=== PATIENT | female | born 1955 | race Caucasian/White ===

== ENCOUNTER 2023-07-06 14:29 | Emergency (ER) | payer MEDICARE, SELFPAY ==
--- NOTE | 2023-07-06 14:43 | ED.EAR ---
HPI - Ear Problem General Chief complaint: Ear Stated complaint: right ear pain/full, vertigo Time Seen by Provider: 07/06/23 14:57 Source: patient and RN notes reviewed Mode of arrival: ambulatory Limitations: no limitations History of Present Illness HPI Narrative: 67-year-old female presents with concern for right ear fullness, discomfort. Reports that is aggravating her vertigo. She reports history of vertigo, she took meclizine this morning which has helped to use her vertigo but she continues have a sensation of fullness. She reports she normally does not have hearing in that ear. She reports history of problems with that ear. She denies drainage. MD Complaint: ear pain Related Data Home Medications Medication Instructions Recorded Confirmed citalopram 20 mg tablet mg 07/06/23 estradiol 0.01% (0.1 mg/gram) vaginal 07/06/23 vaginal cream famotidine 40 mg tablet mg 07/06/23 fluticasone furoate 200 inhalation 07/06/23 mcg-vilanterol 25 mcg/dose inhalation powder (Breo Ellipta) metoprolol succinate 25 mg mg PO 07/06/23 tablet,extended release 24 hr nitroglycerin 0.4 mg sublingual mg 07/06/23 tablet potassium chloride 10 mEq meq PO 07/06/23 tablet,extended release rosuvastatin 10 mg tablet mg 07/06/23 valsartan 80 tablet 07/06/23 mg-hydrochlorothiazide 12.5 mg tablet Allergies Allergy/AdvReac Type Severity Reaction Status Date / Time Sulfa (Sulfonamide Allergy Hives Verified 07/06/23 14:56 Antibiotics) codeine AdvReac Anxiety Verified 07/06/23 14:56 Review of Systems Review of Systems: CONSTITUTIONAL: Denies malaise, chills, sweats, or fever. EYES: Denies visual changes, redness, or discharge. ENT: Denies rhinorrhea, congestion, sinus pain, and sore throat. Reports right ear fullness CARDIOVASCULAR: Denies chest pain, palpitations, or edema. RESPIRATORY: Denies cough. Denies dyspnea. GASTROINTESTINAL: Denies abdominal pain, nausea, vomiting, diarrhea SKIN: Denies rash or itching. MUSCULOSKELETAL: Denies myalgia. NEUROLOGIC: Denies headache. Reports vertigo All systems reviewed & are unremarkable except as noted in HPI and below PMFSH Comments At time of signature, agree with nursing past medical, surgical, social and family history. There is no relevant family history pertinent to the presenting complaint Exam Narrative: GENERAL: Well-appearing, well-nourished, and in no acute distress. HEAD: Normocephalic EYES: PERRLA, conjunctivae clear ENT: Nares clear. Mucous membranes moist. TM pearly eaton with sharp light reflex bilaterally; no tragal tenderness. NECK: Supple. No lymphadenopathy CHEST: Clear to auscultation, breath sounds equal. No wheezing, rhonchi, rales, or stridor. No respiratory distress, speaks in full sentences. HEART: Regular rate and rhythm. No murmur heard. SKIN: Warm, dry, no rash. NEURO: Alert and oriented x3. No focal deficits. PSYCH: Normal mood and affect Course Course Emergency Course: Patient is aware of diagnosis, understands and agrees to treatment plan. Anticipatory guidance given. Patient agrees to follow-up as directed and is aware of reasons to seek care at the emergency department. Portions of this record may have been created with voice recognition software Level of Care: Express Care Visit Vital Signs Vital signs: Reviewed. Medical Decision Making MDM Narrative Medical decision making narrative: Differential diagnosis considered: Walsh virus, strep pharyngitis, allergic rhinitis, upper respiratory tract infection, sinusitis, rhinosinusitis, nasopharyngitis. viral pharyngitis, otitis media, otitis externa, otitis effusion, cerumen impaction, foreign body. Exam findings show no acute concerns or changes; patient is non-toxic appearing and is in no distress. Patient is appropriate for outpatient treatment and follow-up. Critical Care Time Critical Care Time Critical Care Time: No Discharge Plan Discharge C
[2023-07-06 14:44] VITALS: BP 154/85; PULSE 80; RESP 16; TEMP 36.6; O2SAT 100
== END 2023-07-06 15:11 | disposition home or self-care (01) ==
PROVIDERS: Emergency Provider Nurse Practitioner; PCP Internal Medicine Endocrinology, Diabetes & Metabolism
DX: H93.8X1 Other specified disorders of right ear (principal); R42 Dizziness and giddiness; E78.00 Pure hypercholesterolemia, unspecified; I10 Essential (primary) hypertension; J45.909 Unspecified asthma, uncomplicated; K21.9 Gastro-esophageal reflux disease without esophagitis; Z95.5 Presence of coronary angioplasty implant and graft
CPT/HCPCS: 99213; G0463

== ENCOUNTER 2024-12-03 12:45 | Outpatient (CLI) | payer MEDICARE, SELFPAY ==
--- OUTSIDE RECORDS SUMMARY | 2024-12-03 12:51 | XMS_ITS | Clinical Summary ---
Author Organization [email or web address] Address [address] [place] [address] Care Team Providers Care Oracle Engineer Name Role Phone Eladio Jeffries MD Primary Care Provider + Source Comments [email or web address],non-owned Affiliates and Associated Physician Practices is amultiple site organization consisting of ambulatory clinics and hospital sitesin [place], [place], [place] and [place]. This disclosure is being madepursuant to the Care Everywhere program and may not contain all information available regarding this patient. Last updated 18.[email or web address] Allergies Active Allergy Reactions Criticality Noted Date Comments Codeine Palpitations High 02/12/2017 Hydrocodone-Acetaminophen Palpitations Low 06/18/19 18 Sulfa Drugs Urticaria Medium 02/12/2017 Medications * Be aware that medications may not be up to date on this document. Alwaysverify current medications with the patient. famotidine (PEPCID) 40 MG tablet Take 1 (one) tablet by mouth once daily 3 7 Active citalopram (CELEXA) 20 MG tablet Take 0.5 (one-half) tablet by mouth once daily 1 7 Active esomeprazole (NEXIUM OTC) 20 MG capsule Take 1 (one) capsule by mouth daily before breakfast Active nitroGLYCERIN (NITROSTAT) 0.4 MG tablet Dissolve 1 (one) tablet under the tongue as needed 1 Active metoprolol succinate XL 24hr (TOPROL XL) 25 MG tablet Take 1 (one) tablet by mouth at bedtime 1 Active aspirin buffered (BUFFERIN LOW DOSE) 81 MG tablet Active potassium chloride ER (KLOR-CON) 10 MEQ tablet 2 (two) tablets once daily 1 Active valsartan-hydro CHLOROthiazide (DIOVAN HCT) 80-12.5 MG tablet Take 1 (one) tablet by mouth once daily 1 Active rosuvastatin (CRESTOR) 5 MG tablet Take 1 (one) tablet by mouth once daily 0 Active estradiol (Estrace) 0.1 MG/GM vaginal cream Apply a small amount around the vaginal opening nightly 42.5 g 1 3 Active Fluticasone Furoate-Vilante rol (BREO ELLIPTA IN) Breo Ellipta Activ e Active Problems Problem Noted Date Diagnosed Date Personal history of colonic polyps 10/21/2023 Overview (02/19/2024): IMO Replacement Utility 02/19/2024 Family history of colon cancer 11/13/2020 Sensorineural hearing loss ( SNHL) of right ear with unrestricted hearing of left ear 07/18/2020 Meniere disease Hearing loss GERD (gastroesophageal reflux disease) Hypertension Depression Elevated cholesterol Asthma Immunizations Immunization Administration Dates Next Due INFLUENZA VACCINE, TRIV. (AF LURIA, FLUZONE TRIVALENT; 6MO+) (IIV3) 03/13/2014,02/05/2013 Covid Profista primary monoval ent 12+ yr 0.3mL Purple cap 07/13/2020,06/20/2020 INFLUENZA VACCINE 03/18/2019, 7,03/22/2016,2014 INFLUENZA VACCINE, HIGH-DOSE , QUADR. (FLUZONE HIGH-DOSE QUADRIVALENT; 65Y+), 0.7 ML (HD-IIV4) 02/08/2021,02/03/2020 INFLUENZA VACCINE, QUADR. (F LUZONE; FLULAVAL; FLUARIX; AFLURIA QUADRIVALENT; 6MO+), 0.5 ML (IIV4) 02/23/2018 PNEUMOCOCCAL PPSV23 06/20/2019 Pneumococcal Pcv13 Conj 02/21/2015 Family History Medical History Relation Name Comments Cancer - Colon Father COPD - Chronic Obstructive Pulmonary Disease Mother Cancer - Colon Mother Cancer - Breast Sister Relation Name Status Comments Father Mother Sister Social History Tobacco Use Types Packs/Day Years Used Date Smoking Tobacco: Never Smokeless Tobacco: Never Tobacco Cessation:Counseling Given: Not Answered Alcohol Use Standard Drinks/Week Comments Yes 0 (1 standard drink = 0.6 oz pur e alcohol) rarely Comments No Sex and Gender Information Value Date Recorded Sex Assigned at Female 03/18/2021 10:49 AM CDT Legal Sex Female 6:15 PM CDT Gender Identity Female 03/18/2021 10:49 AM CDT Sexual Orientation Straight 03/18/2021 10 :49 AM CDT Last Filed Vital Signs Vital Sign Reading Time Taken Comments Blood Pressure 128/85 10/21/2023 12:20 PM CDT Pulse 70 10/21/2023 12:20 PM CDT Temperature 36.6 C (97.8 F) 11/28/2022 10:36 AM CDT Respiratory Rate 15 11/28/2022 11:00 AM CDT Oxygen Saturation 98% 10/21/2023 12:20 PM CDT Inhaled Oxygen Concentration - - Weight 81.6 kg (180 lb) 10/21/2023 12:20 PM CDT Height 160 cm (5' 3) 10/21/2023 12:20 PM CDT Body Mass Index 31.89 10/21/2023 12:20 PM CDT Plan of Treatment Health Maintenance Due Date Last Done Comments COLOGUARD (AGES 45-75) - COLON CA SCREENING 1955 CT COLONOGRAPHY - COLON CA SCREENING 1955 FIT - COLON CA SCREENING 1955 FLEX SIG - COLON CA SCREENING 1955 HEPATITIS C SCREENING 10/18/1971 DTAP/TDAP/TD VACCINES (1 - Tdap) 1972 ZOSTER VACCINE (1 of 2) 10/23/2003 Respiratory Syncytial Virus (RSV) Vaccine Pt: or over 60 yrs (1 - Risk 60-74 years 1-dose series) 2013 COVID-19 VACCINE (3 - season) 2024 07/13/2020, 06/20/2020 DEPRESSION SCREENING 05/20/2024 MEDICARE AWV CALENDAR YEAR 2024 MAMMOGRAM 10/03/2024 10/03/2022, 08/18, 08/10/2020, Additional history exists INFLUENZA VACCINE (#1) 2025 3, 02/08/2021, 02/03/2020, Additional history exists SCREENING FOR DIABETES 07/29/2026 4, 11/22/2022, 07/26/2022, Additional history exists COLON MONITORING 11/28/2032 11/28/2022, 04/2023, 12/28/2020, Additional history exists COLONOSCOPY - COLON CA SCREENING 11/28/2032 11/28/2022, 11/28/2022, 12/28/2020, Additional history exists Colorectal Cancer Screening 11/28/2032 PNEUMOCOCCAL VACCINE 50+ Completed 06/20/2019, 09/2014 BONE DENSITY TESTING Completed 03/15/2021, 03/15/20 21 HEPATITIS B VACCINE Aged Out No longe r eligible based on patient's age to complete this topic HIB VACCINE Aged Out No longer eligi ble based on patient's age to complete this topic HPV VACCINE Aged Out No longer eligi ble based on patient's age to complete this topic MENINGOCOCCAL (Group B) VACCINE SHARED DECISION-MAKING Aged Out No longer eligible based on patient's age to complete this topic MENINGOCOCCAL GROUPS A/C/Y/W VACCINE Aged Out No longer eligible based on patient's age to complete this topic Goals Goal Patient Goal Type Associated Problems Recent Progress Patient-Stated? Author Medication Management General On track( 024 12:25 PM CDT) No Magaly Fuentes, RN Note: Expected end date: ongoing Interventions: Take all medications as prescribed Let your doctor know right away about any changes in your medications Make sure to request a refill of your medication at least one week prior to your last dose Procedures Procedure Name Priority Date/Time Associated Diagnosis Comments ENDOSCOPY, COLON, SCREENING Routine 11/28/2022 8:18 AM CDT COMPREHENSIVE METABOLIC PANEL 11/22/2022 1:43 PM CDT MAMMOGRAM 10/03/2022 DEXA BONE DENSITY 2 SITES 03/15/2021 from Last 3 Months or Most Recently Relevant to Health Maintenance Results * ENDOSCOPY, COLON, SCREENING (11/28/2022 8:18 AM CDT) Report Endoscopy POC Endoscopy Department Report _ Patient Name: Lexi Chicas Procedure Date: 11/28/2022 8:18 AM Date of : 1955 Classification: Outpatient Gender: Female Ethnicity: Not or Race: White _ Providers: Deep Wagner MD, Mik Devine (Fellow), Rafael Palma (Fellow) Referring MD: Eladio Jeffries MD (PCP), Lulu IversonSouth [facility] HospitalMD Ha (Referring MD), Linda Lopes (Referring MD) Procedure: Colonoscopy Indications: High risk colon cancer surveillance: Personal history of colonic polyps, Family history of colon cancer in multiple first-degree relatives Medications: Monitored Anesthesia Care Description of Procedure: Pre-Anesthesia Assessment: - Prior to the procedure, a History and Physical was performed, and patient medications and allergies were reviewed. The patient's tolerance of previous anesthesia was also reviewed. The risks and benefits of the procedure and the sedation options and risks were discussed with the patient. All questions were answered, and informed consent was obtained. Prior Anticoagulants: The patient has taken no anticoagulant or antiplatelet agents. ASA Grade Assessment: II - A patient with mild systemic disease. After reviewing the risks and benefits, the patient was deemed in satisfactory condition to undergo the procedure. After I obtained informed consent, the scope was passed under direct vision. Throughout the procedure, the patient's blood pressure, pulse, and oxygen saturations were monitored continuously. The Colonoscope was introduced through the anus and advanced to the cecum, identified by appendiceal orifice and ileocecal valve. The colonoscopy was performed without difficulty. The patient tolerated the procedure well. The quality of the bowel preparation was good. The ileocecal valve, appendiceal orifice, and rectum were photographed. Findings: Skin tags were found on perianal exam. A 4 mm polyp was found in the transverse colon. The polyp was sessile. The polyp was removed with a cold snare. Resection and retrieval were complete. Multiple medium-mouthed diverticula were found in the sigmoid colon. Internal hemorrhoids were found during retroflexion. Estimated Blood Loss: Estimated blood loss was minimal. Complications: No immediate complications. Impression: - Perianal skin tags found on perianal exam. - One 4 mm polyp in the transverse colon, removed with a cold snare. Resected and retrieved. - Diverticulosis in the sigmoid colon. - Internal hemorrhoids. Recommendation: - Patient has a contact number available for emergencies. The signs and symptoms of potential delayed complications were discussed with the patient. Return to normal activities tomorrow. Written discharge instructions were provided to the patient. - Resume previous diet. - Continue present medications. - Await pathology results. - Repeat colonoscopy in 5 years for surveillance, pending pathology results. - Return to primary care physician as previously scheduled. Attending Participation: I was present and participated during the entire procedure, including non-george portions. Procedure Code(s): --- Professional --- 96220, Colonoscopy, flexible; with removal of tumor(s), polyp(s), or other lesion(s) by snare technique Diagnosis Code(s): --- Professional --- Z86.010, Personal history of colonic polyps D12.3, Benign neoplasm of transverse colon (hepatic flexure or splenic flexure) K64.8, Other hemorrhoids K64.4, Residual hemorrhoidal skin tags Z80.0, Family history of malignant neoplasm of digestive organs K57.30, Diverticulosis of large intestine without perforation or abscess without bleeding CPT copyright 2021 [employer]. All rights reserved. The codes documented in this report are preliminary and upon financial administration officer review may be revised to meet current compliance requirements. _ Deep Wagner MD 11/28/2022 10:51:32 AM Note Initiated On: 11/28/2022 8:18 AM Number of Addenda: [address] [address] [facility] 11/28/2022 8:18 AM CDT us Deep Wagner MD GI PROCEDURE ORDERABLES Edite d Result - Final [facility] * (ABNORMAL) COMPREHENSIVE METABOLIC PANEL (11/22/2022 1:43 PM CDT) Glucose 93 65 - 99 mg/dL [facility] Comment: Fasting reference interval BUN 15 7 - 25 mg/dL [facility] Creatinine 1.29(H) 0.50 - 1.05 mg/dL [facility] eGFR by Cystatin C 45(L) > OR = 60 mL/min/1.7 3m2 [facility] Comment: The eGFR is based on the CKD-EPI 2020 equation. To calculate the new eGFR from a previous Creatinine or Cystatin C result, go to https://www.kidney.org/professionals/ kdoqi/gfr%5Fcalculator BUN/Creatinine Ratio 12 6 - 22 (calc) [facility] Sodium 139 135 - 146 mmol/L [facility] Potassium 4.1 3.5 - 5.3 mmol/L [facility] Chloride 103 98 - 110 mmol/L [facility] CO2 26 20 - 32 mmol/L [facility] Calcium 9.4 8.6 - 10.4 mg/dL [facility] Protein Total 6.8 6.1 - 8.1 g/dL [facility] Albumin 4.4 3.6 - 5.1 g/dL [facility] Globulin Total 2.4 1.9 - 3.7 g/dL (calc) [facility] Albumin/Globulin Ratio 1.8 1.0 - 2.5 (calc) [facility] Bilirubin Total 0.9 0.2 - 1.2 mg/dL [facility] Alkaline Phosphatase 80 37 - 153 U/L [facility] AST 22 10 - 35 U/L [facility] ALT 14 6 - 29 U/L [facility] Comment: Test Performed at: [facility] [id number] [place] [id number] ARACELI BOWERS MD 11/22/2022 1:43 PM CDT 11/22/2022 1:46 PM CDT us Ander Marinelli MD LAB - CHEMISTRY ORDERABLES Final Result [facility] [id number] [place] [address] * MAMMOGRAM (10/03/2022) Anatomical Region Laterality Modality Other 10/03/2022 Narrative 10/03/2022 Ordered by an unspecified provider. us Scanned Document SCANNING ONLY Final Result * DEXA BONE DENSITY 2 SITES (03/15/2021) Anatomical Region Laterality Modality Other 03/15/2021 Narrative 03/15/2021 Ordered by an unspecified provider. us Scanned Document DEXA ORDERABLES Final Result from Last 3 Months or Most Recently Relevant to Health Maintenance Insurance [employer] MEDICARE ADV Care Teams Oracle Engineer Relationship Specialty Start Date End Date Eladio Jeffries MD [id number] [address] PCP - General Internal Medicine 11/02/17
--- OUTSIDE RECORDS SUMMARY | 2024-12-03 12:51 | XMS_ITS | Clinical Summary ---
Author Organization [facility] Address [address] [place] [address] Phone Care Team Providers Care Exploration Engineer Name Role Phone Eladio Jeffries MD Primary Care Provider [phone] Allergies Active Allergy Reactions Criticality Noted Date Comments Codeine Palpitations High 02/12/2017 Sulfa (Sulfonamide Antibiotics) Hives,Anaphylaxis High 10/17/2012 Medications aspirin (RADHA) 81 mg Oral Tab Take by mouth. Active potassium chloride (KLOR-CON) 20 mEq Extended Release tablet Take 2 Tablets by mouth daily. 9 Active metoprolol succinate (TOPROL XL) 25 mg Extended Release 24 hour tablet Take 25 mg by mouth daily. 1 Active diazePAM (VALIUM) 2 mg tablet Take 2 mg by mouth Continuous as needed. 1 Active esomeprazole (NexIUM) 20 mg Capsule, Delayed Release(E.C.) Take 20 mg by mouth daily. Active nitroglycerin (NITROSTAT) 0.4 mg Tablet, Sublingual PLACE 1 TABLET BY MOUTH UNDER THE TONGUE EVERY 5 MINUTES NEEDED FOR CHEST PAIN DIRECTED 1 Active famotidine (PEPCID) 40 mg tablet TAKE 2 TABLETS BY MOUTH EVERY NIGHT AT BEDTIME 0 Active citalopram (CeleXA) 20 mg tablet Take 1 Tablet by mouth daily. 1 Active valsartan-hydro CHLOROthiazide (DIOVAN HCT) 80-12.5 mg tablet Take 1 Tablet by mouth daily. Active ondansetron (ZOFRAN ODT) 8 mg Tablet, Rapid Dissolve Take 8 mg by mouth. 3 Active fluticasone propionate (FLONASE) 50 mcg/spray [place], Suspension nasal inhaler Administer 2 Sprays in each nostril daily. 2 Active estradioL (ESTRACE) 0.01% (0.1 mg/g) vaginal cream APPLY A SMALL AMOUNT AROUND THE VAGINAL OPENING NIGHTLY 3 Active predniSONE 10 mg Tablets, Dose Pack 4 po qd x 3 days, then 3 po qd x 3 days, then 2 po qd x 3 days, then 1 po qd x 3 days. 30 Tablet 4 Active amLODIPine (NORVASC) 2.5 mg tablet Take 2.5 mg by mouth daily. 4 02/18/20 25 Active fenofibrate (LOFIBRA) 54 mg Take 54 mg by mouth daily. 4 02/18/20 25 Active inhalational spacing device SpacerIndicatio ns:ILD (interstitial lung disease) (CMS/HCC) Use with HFA inhalers 1 Each 4 Active albuterol sulfate HFA 90 mcg/actuation aerosol inhalerIndicati ons:ILD (interstitial lung disease) (CMS/HCC) Take 2 Puffs by inhalation every 6 hours as needed for Shortness of Breath. 8.5 Gram 11 4 Active fluticasone furoate-vilante roL (BREO ELLIPTA) 200-25 mcg/dose Disk with Device Take 1 Puff by inhalation daily. RINSE MOUTH AFTER USING 1 Each 8 5 Active methylPREDNISol one (MEDROL DOSPACK) 4 mg Tablets, Dose Pack Follow package instructions 21 Tablet 5 Active benzonatate (TESSALON) 200 mg capsule Take 1 Capsule (200 mg) by mouth 3 times daily. 90 Capsule 1 5 Active azelastine (ASTELIN) 137 mcg/actuation nasal spray Administer 2 Sprays in each nostril 2 times daily. 30 mL 11 5 Active fluticasone furoate-vilante roL (BREO ELLIPTA) 200-25 mcg/dose Disk with DeviceIndicatio ns:Cough, unspecified type Take 1 Puff by inhalation daily. 1 Each 11 5 Active methylPREDNISol one (MEDROL DOSPACK) 4 mg Tablets, Dose PackIndications :Cough, unspecified type Use per box instructions 21 Tablet 5 Active benzonatate (TESSALON) 200 mg capsule Take 1 Capsule (200 mg) by mouth 3 times daily. 90 Capsule 1 5 Active Active Problems Patient Care Coordination No te Formatting of this note migh t be different from the original. Primary Care: Eladio Jeffries MD Referring Provider: [place] [address] [place] [address] Other: Problem Noted Date Diagnosed Date Lump or mass in breast 10/16/2012 HTN (hypertension) Arthritis Encounters Date Type Department Care Team Description 12/01/2024 External Device Data [facility] ABSTRACTION Provider, Abstract 11/03/2024 External Device Data [facility] ABSTRACTION Provider, Abstract 11/02/2024 2:30 PM CDT Office Visit [facility] Pulmonology [address] [place] [address] Marco Lawson MD ILD (interstitial lung disease) ([facility]) (Primary Dx); Mild persistent asthma without complication; Gastroesophageal reflux disease, unspecified whether esophagitis present 11/02/2024 Telephone [facility] [address] [place] [address] Marco Lawson MD Needs Orders Written; Wants Appointment 10/30/2024 9:20 AM CDT - 10/30/2024 11:59 PM CDT Hospital Encounter [facility] Pulmonary Function [facility] [place] [facility] [address] [place] [address] A [address] [place] [address] Marco Lawson MD Discharge Disposition: Home or Self Care 10/28/2024 9:10 AM CDT - 10/28/2024 11:59 PM CDT Hospital Encounter [facility] CT Scan [address] [facility] [address] [place] [address] Marco Lawson MD Discharge Disposition: Home or Self Care 10/13/2024 External Device Data [facility] ABSTRACTION Provider, Abstract 10/08/2024 External Device Data [facility] ABSTRACTION Provider, Abstract 10/07/2024 External Device Data [facility] ABSTRACTION Provider, Abstract 10/06/2024 External Device Data [facility] ABSTRACTION Provider, Abstract 09/08/2024 1:00 PM CDT Office Visit [facility] Pulmonology [address] [place] [address] Marco Lawson MD Cough, unspecified type (Primary Dx); ILD (interstitial lung disease) ([facility]); Gastroesophageal reflux disease, unspecified whether esophagitis present 09/07/2024 Telephone [facility] [address], [place] [id number] Marco Lawson MD Cough from Last 3 Months Family History Medical History Relation Name Comments Cancer Father Heart Disease Mother Breast Cancer Sister Relation Name Status Comments Father Mother Sister Social History Tobacco Use Types Packs/Day Years Used Date Smoking Tobacco: Never Smokeless Tobacco: Never Tobacco Cessation:Counseling Given: Not Answered Alcohol Use Standard Drinks/Week Comments Yes 0 (1 standard drink = 0.6 oz pur e alcohol) rare Comments No Sex and Gender Information Value Date Recorded Sex Assigned at Not on file Legal Sex Female 5:05 AM QUITLINE COUNSELOR Gender Identity Not on file Sexual Orientation Not on file Occupation Industry Job Start Date Job End Date Not on file Not on file Not on file Not on file Last Filed Vital Signs Vital Sign Reading Time Taken Comments Blood Pressure 108/68 11/02/2024 2:30 PM CDT Pulse 75 11/02/2024 2:30 PM CDT Temperature - - Respiratory Rate - - Oxygen Saturation 98% 11/02/2024 2:30 PM CDT Inhaled Oxygen Concentration - - Weight 80.7 kg (178 lb) 11/02/2024 2:30 PM CDT Height 160 cm (5' 3) 11/02/2024 2:30 PM CDT Body Mass Index 31.53 11/02/2024 2:30 PM CDT Plan of Treatment Upcoming Encounters Date Type Department Care Team (Late st Contact Info) Description 05/05/2025 10:00 AM QUITLINE COUNSELOR Office Visit [facility] [address] [place] [phone] Marco Lawson MD [address] [place] [address] Health Maintenance Due Date Last Done Comments DTAP/TDAP/TD VACCINES (1 - Tdap) 1972 FIT-DNA Q 3 years 1998 FIT/FOBT Q 1 year 1998 Flex Sig/CT Colonography Q 5 years 1998 ZOSTER VACCINE (1 of 2) 10/23/2003 BREAST CANCER SCREENING 03/12/2013 03/12/2012 RSV VACCINE (60+ or ) (1 - Risk 60-74 years 1-dose series) 2013 COVID-19 Vaccine (3 - 2023-2 5 season) 2024 07/13/2020, 06/20/2020 INFLUENZA VACCINE (#1) 2024 , 02/03/2020, 03/18/2019, Additional history exists OSTEOPOROSIS SCREENING 03/15/2026 03/15/2021 COLORECTAL SCREENING 11/28/2032 11/28/2022 Colorectal Cancer Screening 11/28/2032 PNEUMOCOCCAL VACCINE 50+ YEARS Completed 06/20/2019 , 02/21/2015 Procedures Procedure Name Priority Date/Time Associated Diagnosis Comments PULMONARY FUNCTION TEST Routine 10/30/2024 9:27 AM CDT ILD (interstitial lung disease) (CMS/HCC) CT CHEST HIGH RESOLUTION Routine 10/28/2024 10:05 AM CDT ILD (interstitial lung disease) (CMS/HCC) MAMMO SCREEN BILAT W OR WO CAD Routine 03/12/2012 from Last 3 Months or Most Recently Relevant to Health Maintenance Results * PULMONARY FUNCTION TEST (10/30/2024 9:27 AM CDT) 10/30/2024 9:27 AM CDT Narrative INTERFACE SYSTEM - 11/02/2024 7:36 AM CDT [facility] [address], [place] [address] Test Date: 2024-10-30 Pat Name: LEXI HIDALGO Department: Room: Gender: Female Grain Inspector: : 1955 Requested By: MARCO LAWSON Order Number: [id number] Michelle MD: Marco Lawson Interpretive Statements The patient is a 69 year old Female, height 156 cm. and weight of 176 lbs. The indication for the pulmonary function test is ILD. Technically adequate study. SPIROMETRY revealed an FVC of 2.78 Liters, 108 % of predicted. The FEV1 is 2.19 Liters, 110 % of predicted, the FEV1/FVC ratio is 79 %. DIFFUSION CAPACITY for carbon monoxide (DLCO) is 8.3 mL/min/mmHg, 47 % pred. The inspiratory and expiratory flow volume loops are normal. IMPRESSION: Moderate isolated reduction in diffusion capacity without evidence of obstructive or restrictive ventilatory defect. When compared to prior study from April 2024, no change. Electronically Signed On 11-02-2024 7:36:28 CDT by Marco Lawson Procedure Note Provider, Historical - 11/02/2024 [facility] [address] [place] [address] Test Date: 2024-10-30 Pat Name: LEXI HIDALGO Department: Room: Gender: Female Grain Inspector: : 1955 Requested By: MARCO LAWSON Order Number: [id number] Michelle MD: Marco Lawson Interpretive Statements The patient is a 69 year old Female, height 156 cm. and weightof 176 lbs. The indication for the pulmonary function test is ILD. Technically adequate study. SPIROMETRY revealed an FVC of 2.78 Liters, 108 % of predicted. The FEV1 is 2.19 Liters, 110 % of predicted, the FEV1/FVC ratio is 79 %. DIFFUSION CAPACITY for carbon monoxide (DLCO) is 8.3 mL/min/mmHg, 47 %pred. The inspiratory and expiratory flow volume loops are normal. IMPRESSION: Moderate isolated reduction in diffusion capacity without evidence of obstructive or restrictive ventilatory defect. When comparedto prior study from April 2024, no change. Electronically Signed On 11-02-2024 7:36:28 CDT by Marco Lawsno Marco Lawson MD PFT ORDERABLES Final Result INTERFACE SYSTEM Refer to clinic/hospital department * CT CHEST HIGH RESOLUTION (10/28/2024 10:05 AM CDT) Anatomical Region Laterality Modality Chest Computed Tomogra phy 10/28/2024 10:0 6 AM CDT Impressions 10/28/2024 3:47 PM CDT IMPRESSION: 1. 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 DICTATION LOCATION: Location 1 - [facility] 10/28/2024 3:47 PM CDT EXAMINATION: CT CHEST HIGH RESOLUTION DATE: 10/28/2024 10:05 AM HISTORY: ild ILD (interstitial lung disease) (CMS/HCC) TECHNIQUE: Computed tomography of the chest was performed without contrast according to a high resolution protocol. The examination was performed with the adjustment of mA according to the patient size and/or the use of Iterative Reconstruction Technique. CT Dose Length Product (DLP): 476.67 mGy*cm FINDINGS: Comparison made with the prior exam from 11/07/2023, 05/23/2022, and 05/23/2021. Heart and mediastinum: The heart is normal in size without pericardial effusion. Heavy multivessel coronary calcifications are present. The ascending aorta and main pulmonary artery are nondilated. No enlarged mediastinal or hilar lymph nodes are seen. A small hiatal hernia is present. Lungs and Airways: Central airways are patent. No significant central bronchiectasis. Basilar predominant peripheral bronchiolectasis has progressed from prior exams dated. There has been interval progression of basilar predominant subpleural reticulation. Lesser extent of subpleural reticulation in the anterior left upper lobe is unchanged. New subsegmental area of subsegmental atelectasis/scarring in periphery of the upper lingula (series 3, image 276). The lungs are free of focal consolidation. Scattered benign calcified granulomas are unchanged. Stable 3 mm solid noncalcified nodule in the apical right upper lobe (series 3, image 101). No new or enlarging pulmonary nodule. No significant parenchymal groundglass attenuation. No architectural distortion or macroscopic honeycombing identified. No air trapping is seen on expiratory images. Parenchymal findings are unchanged on prone acquisition. Pleura: No pleural effusion or pneumothorax is seen. Lower neck and soft tissues: The imaged thyroid gland appears normal. No axillary or subpectoral lymphadenopathy is identified. Abdomen: Multifocal simple hepatic cysts. Bones: No suspicious lytic or blastic lesions are seen. INCIDENTAL FINDINGS: None. Procedure Note Scotty Fuchs DO - 10/28/2024 EXAMINATION: CT CHEST HIGH RESOLUTION DATE: 10/28/2024 10:05 AM HISTORY: ild ILD (interstitial lung disease) (CMS/HCC) TECHNIQUE: Computed tomography of the chest was performed without contrast according to a high resolution protocol. The examination was performed with the adjustment of mA according to the patient size and/or the use of Iterative Reconstruction Technique. CT Dose Length Product (DLP): 476.67 mGy*cm FINDINGS: Comparison made with the prior exam from 11/07/2023, 05/23/2022, and 05/23/2021. Heart and mediastinum: The heart is normal in size without pericardial effusion. Heavy multivessel coronary calcifications are present. The ascending aorta and main pulmonary artery are nondilated. No enlarged mediastinal or hilar lymph nodes are seen. A small hiatal hernia is present. Lungs and Airways: Central airways are patent. No significant central bronchiectasis. Basilar predominant peripheral bronchiolectasis has progressed from prior exams dated. There has been interval progression of basilar predominant subpleural reticulation. Lesser extent of subpleural reticulation in the anterior left upper lobe is unchanged. New subsegmental area of subsegmental atelectasis/scarring in periphery of the upper lingula (series 3, image 276). The lungs are free of focal consolidation. Scattered benign calcified granulomas are unchanged. Stable 3 mm solid noncalcified nodule in the apical right upper lobe (series 3, image 101). No new or enlarging pulmonary nodule. No significant parenchymal groundglass attenuation. No architectural distortion or macroscopic honeycombing identified. No air trapping is seen on expiratory images. Parenchymal findings are unchanged on prone acquisition. Pleura: No pleural effusion or pneumothorax is seen. Lower neck and soft tissues: The imaged thyroid gland appears normal. No axillary or subpectoral lymphadenopathy is identified. Abdomen: Multifocal simple hepatic cysts. Bones: No suspicious lytic or blastic lesions are seen. INCIDENTAL FINDINGS: None. IMPRESSION: 1. 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 DICTATION LOCATION: Location 1 - [facility] us Marco Lawson MD CT ORDERABLES Final Result * MAMMO DIGITAL SCREEN BILAT (03/12/2012) Anatomical Region Laterality Modality Breast Bilateral Other us Merary Bertrand MD MAMMO ORDERABLES Final Resu lt from Last 3 Months or Most Recently Relevant to Health Maintenance Insurance Care Teams Exploration Engineer Relationship Specialty Start Date End Date Eladio Jeffries MD [address] [facility] [address] [place] [address] PCP - General Internal Medicine 10/17/12
--- OUTSIDE RECORDS SUMMARY | 2024-12-03 12:51 | XMS_ITS | Clinical Summary ---
Author Organization [facility] Address [address] [place] [address] Care Team Providers Care Dynamite Reclaimer Name Role Phone Chava Sanabria MD Primary Care Provider [phone] Mitch Martin Unavailable Unavailable Ariel Lugo MD Unavailable [phone] Allergies Active Allergy Reactions Criticality Noted Date Comments Codeine Palpitations Medium 02/12/2017 Hydrocodone-Acetaminophen Palpitations Low 06/18/19 18 Sulfa (Sulfonamide Antibiotics) Anaphylaxis,Hives High 10/17/2012 Medications aspirin 81 mg tablet daily. 01/08/20 09 Active fluticasone furoate-vilanteroL (BREO ELLIPTA) 200-25 mcg/dose diskus inhaler Inhale 1 puff daily 06/15/19 22 Active fluticasone propionate (FLONASE) 50 mcg/actuation nasal spray Administer 2 sprays into each nostril daily 3 each 4 05/02/20 22 Active ondansetron ODT (ZOFRAN-ODT) 8 mg disintegrating tablet Take 1 tablet (8 mg total) by mouth every 8 (eight) hours as needed for nausea or vomiting 20 tablet 2 11/27/19 23 Active nitroglycerin (NITROSTAT) 0.[address] 1 tablet (0.4 mg total) under the tongue every 5 (five) minutes as needed for chest pain If chest pain persists after 3 consecutive doses, call 911 or proceed to nearest emergency department. 100 tablet 3 03/05/20 23 Active multivit with minerals/lutein (MULTIVITAMIN 50 PLUS ORAL) Take by mouth Activ e cholecalciferol (VITAMIN D-3) 2000 unit capsule 1 capsule (2,000 Units total) Active diazePAM (VALIUM) 2 mg tablet Take 1 tablet (2 mg total) by mouth every 8 (eight) hours as needed for anxiety 30 tablet 2 09/07/19 24 Active rosuvastatin (CRESTOR) 10 mg tablet TAKE 1 TABLET(10 MG) BY MOUTH DAILY 90 tablet 3 12/17/19 24 Active amLODIPine (NORVASC) 2.5 mg tabletIndications: prevention of anginal pain from vasospastic angina Take 1 tablet (2.5 mg total) by mouth daily 90 tablet 3 02/18/20 24 025 Active fenofibrate (TRICOR) 54 mg tablet Take 1 tablet (54 mg total) by mouth daily 90 tablet 3 02/18/[address] (NexIUM) 20 mg capsule Take 1 capsule (20 mg total) by mouth daily 90 capsule 3 04/19/20 24 025 Active metoprolol XL (TOPROL-XL) 25 mg extended release tablet TAKE 1 TABLET BY MOUTH EVERY DAY 30 tablet 11 05/06/20 24 Active potassium chloride ER 10 mEq CR tablet TAKE 2 TABLETS BY MOUTH DAILY 180 tablet 3 07/31/19 25 Active calcium carbonate (OS-JULISSA) 1,500 mg (600 mg elemental) tablet TAKE 1 TABLET BY MOUTH DAILY 90 tablet 1 11/03/19 25 Active famotidine (PEPCID) 40 mg tablet Take 2 tablets (80 mg total) by mouth nightly 180 tablet 3 11/13/19 25 Active tirzepatide, weight loss, (Zepbound) 5 mg/0.5 mL pen injector Inject 0.5 mL (5 mg total) under the skin once a week 2 mL 11/24/19 25 Active valsartan-hydroCHL OROthiazide (DIOVAN-HCT) 80-12.5 mg per tabletIndications: hypertension Take 1 tablet by mouth daily 90 tablet 3 12/01/19 25 026 Active estradioL (ESTRACE) 0.01 % (0.1 mg/gram) vaginal cream APPLY A SMALL AMOUNT AROUND THE VAGINAL OPENING NIGHTLY 08/29/19 23 025 Discontin ued(Alter chelsey therapy) famotidine (PEPCID) 40 mg tablet TAKE 2 TABLETS BY MOUTH EVERY NIGHT AT BEDTIME 180 tablet 3 06/25/19 24 025 Discontin ued(Reord er) citalopram (CeleXA) 20 mg tablet TAKE 1 TABLET BY MOUTH DAILY 90 tablet 3 06/25/19 24 025 Discontin ued(Alter chelsey therapy) valsartan-hydroCHL OROthiazide (DIOVAN-HCT) 80-12.5 mg per tabletIndications: hypertension TAKE 1 TABLET BY MOUTH DAILY 90 tablet 3 11/29/19 24 025 Discontin ued(Reord er) Active Problems Problem Noted Date Diagnosed Date Interstitial lung disease 11/12/2024 Assessment & Plan (11/12/2024 2:14 PM CDT): Will continue per Pulmonary. Continue inhalers Shoulder tendonitis, left 01/08/2024 Positive ABDOUL (antinuclear antibody) 10/25/2023 Gastroesophageal reflux disease without esophagi tis 05/29/2023 Assessment & Plan (11/12/2024 2:14 PM CDT): Continue medications. Viral upper respiratory tract infection 11/27/19 23 Obesity (BMI 30-39.9) 07/26/2022 Arthritis 12/27/2021 Encounter for Medicare annual wellness exam 07/18 Overview (07/28/2020): Check labs Sensorineural hearing loss ( SNHL) of right ear with unrestricted hearing of left ear 07/18/2020 Hx of colonic polyp 01/21/2019 Overview (01/21/2019): Added automatically from request for surgery [id number] Family hx of colon cancer 10/09/2018 Overview (10/09/2018): Added automatically from request for surgery [id number] Hx of adenomatous colonic polyps 10/09/2018 Overview (10/09/2018): Added automatically from request for surgery [id number] Statin intolerance 06/20/2018 Elevated cholesterol 12/03/2017 Essential hypertension 12/03/2017 Assessment & Plan (11/12/2024 2:14 PM CDT): BP at target. Certainly from a blood pressure standpoint could remain off amlodipine. Continue other medications for target directed therapy SNHL (sensory-neural hearing loss), unilateral 0 11/04/2017 Lump or mass in breast 10/16/2012 Chest pain 05/28/2012 Multiple vessel coronary artery disease 04/08/20 09 Assessment & Plan (11/12/2024 2:13 PM CDT): Stable no current chest pain Hyperlipidemia 04/08/2009 Assessment & Plan (11/12/2024 2:13 PM CDT): On medications. Labs next visit Resolved Problems Problem Noted Date Diagnosed Date Resolved Date Hx of colonic polyps 03/10/2019 025 Overview (03/10/2019): Added automatically from request for surgery [id number] Encounters Date Type Department Care Team Description 11/12/2024 1:30 PM CDT Office Visit [facility] [address] [place] [address] Chava Sanabria MD Visit for screening mammogram (Primary Dx); Multiple vessel coronary artery disease; Mixed hyperlipidemia; Essential hypertension; Gastroesophageal reflux disease without esophagitis; Interstitial lung disease (HCC) 09/07/2024 Telephone [facility] [address] [place] [address] [place] [address] Ariel Lugo MD from Last 3 Months Immunizations Immunization Administration Dates Next Due Influenza, Quadrivalent, Hig h Dose, Preservative Free, Intrr 02/08/2021,02/03/2020 Influenza, Quadrivalent, Spl it, Preservative Free, Intramuscular 02/10/2022,02/24/2018,02/23/2018 Influenza, Trivalent, High D ose, Split, Preservative Free, Intramuscular 03/22/2024,03/18/2019 Influenza, Trivalent, IM (MDV) 03/13/2014,2012 Influenza, Trivalent, Preser vative Free, Intramuscular 02/21/2017,03/22/2016,02/21/2015,02/21 Pneumococcal Conjugate PCV 13 02/21/2015 Pneumococcal Polysaccharide PPV23 06/20/2019 Surgical History Surgery Date Site/Laterality Comments ANKLE SURGERY 05/20/2016 - 05/19/2017 CARDIAC STENT PLACEMENT 05/20/2008 - 05/19/2009 SHOULDER SURGERY REDUCTION MAMMAPLASTY HYSTERECTOMY SECTION CHOLECYSTECTOMY 05/20/2006 - 05/19/2007 Medical History Medical History Date Comments Wrist fracture CAD (coronary artery disease) Depression GERD (gastroesophageal reflux disease) PONV (postoperative nausea and vomiting) Vasovagal episode Pt. reports B P drops sometimes ie:BM, cardiac cath. Family History Medical History Relation Name Comments Colon cancer Father Family history of colon cancer - (Added by TW Conv) COPD Mother Relation Name Status Comments Father Mother Social History Tobacco Use Types Packs/Day Years Used Date Smoking Tobacco: Never Smokeless Tobacco: Never Tobacco Cessation:Counseling Given: Not Answered Alcohol Use Standard Drinks/Week Comments Never 0 (1 standard drink = 0.6 oz pur e alcohol) AUDIT-C Answer Date Recorded Frequency of Alcohol Consumption Never 02/18/2019 Average Number of Drinks Not on file Frequency of Binge Drinking Not on file 06/2018 PHQ-2 Answer Date Recorded PHQ-2 Total Score (If total score is 3 or more points, staff should administer the PHQ-9) 0 01/07/2024 Personal Safety Answer Date Recorded Have you ever been in or are you currently in a harmful physical or emotional relationship or is someone making you feel afraid or unsafe? Denies 09/13/2023 Comments Unknown Sex and Gender Information Value Date Recorded Sex Assigned at Not on file Legal Sex Female 7:10 PM STAKEHOLDER MANAGER Gender Identity Female 06/20/2020 7:18 PM STAKEHOLDER MANAGER Sexual Orientation Not on file Obstetrics History Last Filed Vital Signs Vital Sign Reading Time Taken Comments Blood Pressure 124/73 11/12/2024 1:29 PM CDT Pulse 93 11/12/2024 1:29 PM CDT Temperature 36.7 C (98.1 F) 10/25/2023 11:12 AM CDT Respiratory Rate 22 10/25/2023 11:12 AM CDT Oxygen Saturation 96% 07/15/2024 9:51 AM STAKEHOLDER MANAGER Inhaled Oxygen Concentration - - Weight 81.2 kg (179 lb) 11/12/2024 1:29 PM CDT Height 160 cm (5' 3) 11/12/2024 1:29 PM CDT Body Mass Index 31.71 11/12/2024 1:29 PM CDT Plan of Treatment Health Maintenance Due Date Last Done Comments Hepatitis C Screening 1955 DTaP/Tdap/Td Vaccine (1 - Tdap) 1964 Hepatitis B Screening 10/23/1971 Breast Cancer Screening-Mammogram 03/12/2013 03/12/2012 Covid-19 Vaccine ( season) 2024 02/03/2022, 10/11/2021, 02/22/2021, Additional history exists Depression Screening 01/07/2025 01/08/2024 Fall Risk Assessment 01/07/2025 01/08/2024 Well Visit 65+ 01/07/2025 01/08/2024, 01/18, 07/28/2020 Influenza Vaccine (#1) 2025 , 02/10/2022, 02/08/2021, Additional history exists Zoster Vaccine (1 of 2) 11/12/2025 Post poned from 10/23/2003 (Patient declined, but will receive in the future) Osteoporosis Screening-Bone Density Scan 01/13/2026 01/14/2024, 03/15/2021 Colon Cancer Screening-Colonoscopy 11/29/2027 Pneumococcal vaccine 65+ Completed 06/20/2019, 09/2014 Insurance [facility] MEDICARE ADVANTAGE MEDICARE [facility] UHC MEDICARE ADVANTAGE MEDICARE [facility] Address: [address] [address] [place] [address] [employer] MEDICARE [facility] Care Teams Dynamite Reclaimer Relationship Specialty Start Date End Date Chava Sanabria MD [address] [facility] [facility] [facility] [address] [place] [address] PCP - General Internal Medicine 11/16/24 Mitch Martin Primary Gi Physician 11/30/24 Ariel Lugo MD [address] [address] [place] [address] Primary Gi Physician Transplant 11/30/24
--- OUTSIDE RECORDS SUMMARY | 2024-12-03 12:51 | XMS_ITS | Referral Summary ---
Author Organization [facility] Address [address] [place] [address] Care Team Providers Care Purchasing Specialist Name Role Phone Chava Sanabria MD Primary Care Provider [phone] Mitch Martin Unavailable Unavailable Ariel Lugo MD Unavailable [phone] Encounters Date Type Department Care Team Description 11/12/2024 1:30 PM CDT Office Visit [facility] [address] [place] [address] Chava Sanabria MD Visit for screening mammogram (Primary Dx); Multiple vessel coronary artery disease; Mixed hyperlipidemia; Essential hypertension; Gastroesophageal reflux disease without esophagitis; Interstitial lung disease (HCC) 09/07/2024 Telephone [facility] [facility] [address] [place] [address] [place] [address] Ariel Lugo MD from Last 3 Months Allergies Active Allergy Reactions Criticality Noted Date [...] mouth daily 90 tablet 3 02/18/[address] (NexIUM) 20 mg capsule [...] (01/21/2019): Added automatically from request for surgery [id number] Family hx of colon cancer 10/09/2018 Overview (10/09/2018): Added automatically from request for surgery [id number] Hx of adenomatous colonic polyps 10/09/2018 Overview (10/09/2018): Added automatically from request for surgery [id number] Statin intolerance 06/20/2018 Elevated cholesterol 12/03/2017 Essential [...] (03/10/2019): Added automatically from request for surgery [id number] Immunizations Immunization Administration Dates Next Due Influenza, Quadrivalent, Hig h Dose, Preservative Free, Intrr 02/08/2021,02/03/2020 Influenza, Quadrivalent, Spl it, Preservative Free, Intramuscular 02/10/2022,02/24/2018,02/23/2018 Influenza, Trivalent, High D ose, Split, Preservative Free, Intramuscular 03/22/2024,03/18/2019 Influenza, Trivalent, IM (MDV) 03/13/2014,2012 Influenza, Trivalent, Preser vative Free, Intramuscular 02/21/2017,03/22/2016,02/21/2015,02/21 Pneumococcal Conjugate PCV 13 02/21/2015 Pneumococcal Polysaccharide PPV23 06/20/2019 Social History Tobacco Use Types Packs/Day Years Used Date Smoking Tobacco: Never Smokeless Tobacco: Never Tobacco Cessation:Counseling Given: Not Answered Alcohol Use Standard Drinks/Week Comments Never 0 (1 standard drink = 0.6 oz pur e alcohol) AUDIT-C Answer Date Recorded Frequency of Alcohol Consumption Never 02/18/2019 Average Number of Drinks Not on file 019 Frequency of Binge Drinking Not on file [...] on file Legal Sex Female 7:10 PM ADMINISTRATION ASSISTANT Gender Identity Female 06/20/2020 7:18 PM ADMINISTRATION ASSISTANT Sexual Orientation Not on file Last Filed Vital Signs Vital Sign Reading Time Taken Comments Blood Pressure 124/73 11/12/2024 1:29 PM CDT Pulse 93 11/12/2024 1:29 PM CDT Temperature 36.7 C (98.1 F) 10/25/2023 11:12 AM CDT Respiratory Rate 22 10/25/2023 11:12 AM CDT Oxygen Saturation 96% 07/15/2024 9:51 AM ADMINISTRATION ASSISTANT Inhaled Oxygen Concentration - - Weight 81.2 kg (179 lb) 11/12/2024 1:29 PM CDT Height 160 cm (5' 3) 11/12/2024 1:29 PM CDT Body Mass Index 31.71 11/12/2024 1:29 PM CDT Plan of Treatment Not on file Insurance [facility] MEDICARE ADVANTAGE MEDICARE [facility] MEDICARE ADVANTAGE MEDICARE [employer] MEDICARE [employer] Care Teams Purchasing Specialist Relationship Specialty Start Date End Date Chava Sanabria MD [address] [facility] [address] [place] [address] PCP - General Internal Medicine 11/16/24 Mitch Martin Primary Trapeze Artist 11/30/24 [place] [address] [place] [address] [address] [place] [address] Primary Trapeze Artist Transplant 11/30/24
--- OUTSIDE RECORDS SUMMARY | 2024-12-03 12:51 | XMS_ITS | Encounter Summary ---
Author Organization [facility] Address [address] [place] [address] Care Team Providers Care Gear Tester Name Role Phone Eladio Jeffries MD Primary Care Provider [phone] Encounter Details Date Type Department Care Team (Late Contact Info) Description 12/01/2024 External Device Data [facility] ABSTRACTION Provider, Abstract NO ADDRESS ON FILE Social History Tobacco Use Types Packs/Day Years Used Date Smoking Tobacco: Never Smokeless Tobacco: Never Alcohol Use Standard Drinks/Week Comments Yes 0 (1 standard drink = 0.6 oz pur e alcohol) rare Comments No Sex and Gender Information Value Date Recorded Sex Assigned at Not on file Legal Sex Female 5:05 AM FINANCIAL ASSISTANCE ADVISOR Gender Identity Not on file Sexual Orientation Not on file Occupation Industry Job Start Date Job End Date Not on file Not on file Not on file Not on file documented as of this encounter Plan of Treatment Upcoming Encounters Date Type Department Care Team (Late st Contact Info) Description 05/05/2025 10:00 AM FINANCIAL ASSISTANCE ADVISOR Office Visit [facility] Pulmonology [facility] [address] [place] [address] Marco Gupta MD [address] [place] [address] documented as of this encounter Visit Diagnoses Not on filedocumented in this encounter Care Teams Gear Tester Relationship Specialty Start Date End Date Eladio Jeffries MD [address] [place] [address] PCP - General Internal Medicine 10/17/12 documented as of this encounter
--- NOTE | 2024-12-03 15:29 | WPDSIXMINUTE ---
Six Minute Walk Procedure Procedure Performed Pulmonary Stress Test (6 min walk) Six Minute Walk Six Minute Walk: This is a 6 minute walk test. The test was performed and interpreted in accordance with the 2014 ERS/ATS task force guidelines. Findings: The patient's resting room air oxygen saturation measured by pulse oximetry was 96%, the heart rate was 91 bpm, and the modified Rangel dyspnea score was 0. Patient ambulated for 305 meters and oxygen saturation remained 95 to 97%. At the end of the study the heart rate was 108 bpm and the modified Rangel dyspnea score was 2. The patient did not qualify for supplemental oxygen at rest or with ambulation. There are no prior studies for comparison.
== END 2024-12-03 12:46 | disposition home or self-care (01) ==
PROVIDERS: PCP Internal Medicine
DX: J84.9 Interstitial pulmonary disease, unspecified (principal)
CPT/HCPCS: 94618

== ENCOUNTER 2025-03-16 13:30 | Outpatient (RCR) | payer MEDICARE, SELFPAY | END 2025-03-16 23:59 | disposition home or self-care (01) | LOC: ANHCPREHAB 13:30 | PROVIDERS: PCP Internal Medicine | DX: J84.9 Interstitial pulmonary disease, unspecified (principal) | CPT/HCPCS: 94625; G0239 ==